=== PATIENT | female | born 1955 | race Caucasian/White ===

== ENCOUNTER → 2023-08-28 07:48 | Outpatient (REF) | payer OTHER, SELFPAY ==
[2023-08-28 09:37] LABS: % Eosinophils 4.5 % (0-6); % Immature Granulocytes 0.1 % (0-0.5); % Lymphocytes 34.5 % (20.5-51.1); % Monocytes 7.9 % (1.7-9.3); Absolute Basophils 0.1 10^3/uL (0-0.2); Absolute Eosinophils 0.3 10^3/uL (0-0.7); Absolute Lymphocytes 2.4 10^3/uL (1.2-3.4); Absolute Monocytes 0.5 10^3/uL (0.1-0.6); Absolute Neutrophils 3.6 10^3/uL (1.4-6.5); Hematocrit 38.1 % (37.0-47.0); Hemoglobin 12.2 g/dL (12.0-16.0); Mean Corpuscular Hgb 30.6 pg (27.0-31.0); Mean Corpuscular Volume 95.5 fL (81.0-99.0); Mean Platelet Volume 12.6 fL (7.4-10.4); Nucleated Red Blood Cells % 0 %; Platelet Count 146 10^3/uL (130-400); Red Blood Cell Count 3.99 10^6/uL (4.20-5.40); Red Cell Dist. Width 13.8 % (11.5-14.5); White Blood Cell Count 6.9 10^3/uL (4.8-10.8)
[2023-08-28 10:12] LABS: ALT (SGPT) 19 U/L (0-35); AST (SGOT) 31 U/L (14-36); Albumin 4.5 g/dl (3.5-5.0); Alkaline Phosphatase 87 U/L (38-126); Blood Urea Nitrogen 50 mg/dl (7-17); Calcium 9.8 mg/dl (8.4-10.2); Carbon Dioxide 30 mmol/L (22-30); Chloride 102 mmol/L (98-107); Glucose 91 mg/dl (70-99); HDL Cholesterol 85 mg/dl; LDL Cholesterol, Calculated 114 mg/dl; Sodium 139 mmol/L (135-145); Total Bilirubin 0.7 mg/dl (0.2-1.3); Total Cholesterol 208 mg/dl (50-199); Total Protein 7.6 g/dl (6.3-8.2); Triglyceride 48 mg/dl (10-149); Very Low Density Lipoprotein 9 mg/dl (0-30); eGFR > 60.00
[2023-08-28 10:38] LABS: TSH Reflex To Free T4 1.53 uIU/ml (0.47-4.68)
== END ==
LOC: REG 07:48
PROVIDERS: ATTENDING PHYSICIAN Physician Assistant
DX: I10 Essential (primary) hypertension (principal); F32.9 Major depressive disorder, single episode, unspecified; E78.5 Hyperlipidemia, unspecified; K21.9 Gastro-esophageal reflux disease without esophagitis
CPT/HCPCS: 36415; 80053; 80061; 84443; 85025

== ENCOUNTER → 2023-09-09 12:33 | Outpatient (REF) | payer OTHER, SELFPAY | LOC: WDC 12:33 | PROVIDERS: ATTENDING PHYSICIAN Physician Assistant | DX: Z12.31 Encounter for screening mammogram for malignant neoplasm of breast (principal) | CPT/HCPCS: 77063; 77067 ==

== ENCOUNTER 2024-08-01 06:22 | Day surgery (SDC) | payer OTHER, SELFPAY | END 2024-08-01 12:28 | disposition home or self-care (01) | LOC: GI 06:22 | PROVIDERS: ATTENDING PHYSICIAN Internal Medicine Gastroenterology | DX: K59.00 Constipation, unspecified (principal); K57.30 Diverticulosis of large intestine without perforation or abscess without bleeding; K64.8 Other hemorrhoids; D12.0 Benign neoplasm of cecum; D12.8 Benign neoplasm of rectum; K63.5 Polyp of colon; K62.1 Rectal polyp | CPT/HCPCS: 45385; 45380; 88305 ==

== ENCOUNTER 2024-08-06 16:45 | Emergency (ER) | payer OTHER, SELFPAY ==
[2024-08-06 16:48] VITALS: BP 130/106
[2024-08-06] MEDS: DECADRON 10 MG PO (18:48)
--- NOTE | 2024-08-06 18:58 | ED.GENMED ---
History of Present Illness
General
Chief Complaint: Skin Problem
Source: patient and family (daughter at bedside)
Exam Limitations: none
Time Seen by Provider: 08/06/24 18:22
Nursing documentation reviewed up to this point in time: agreed with
History of Present Illness
History of Present Illness:
68-year-old female presents for generalized body rash that started this morning. She was started on bupropion HCl XL 150 mg daily about 10 days ago. No other known exposures. She denies shortness of breath or chest pain. She denies fever or
chills. Denies nausea or vomiting. Denies any sores in her mouth or vaginal area. She states she feels well and 'it does not bother me much.'
Past History
Past History
ED Past Medical History: HTN, Hypercholesterolemia and Other (Scoliosis. )
ED Past Surgical History: Gynecological (Hysterectomy)
Social History
Tobacco: Non-smoker
Alcohol: Occasional
Personal: Single
Living: with family
Employment: Employed
Review of Systems
Review of Systems
Allergies reviewed?: Yes
All Other Systems: ROS reviewed and negative except as documented in HPI and ROS
Constitutional: Denies fever or chills
EENT: Denies sore throat, mouth pain or mouth swelling
Respiratory: Denies trouble breathing
Cardiac: Denies chest pain
ABD/GI: Denies abdominal pain or nausea
: Reports no symptoms
Musculoskeletal: Reports no symptoms
Skin: Reports itching and rash
Neurological: Reports no symptoms
Phy Exam
Physical Exam
Physical Exam:
GENERAL: No acute distress. A&Ox3.
CONSTITUTIONAL: Afebrile.
EYES: clear, conjunctivae normal
ENMT: moist mucus membranes, Pharynx nl, no intraoral lesions
RESPIRATORY: Regular respirations, nonlabored, lungs clear.
CARDIOVASCULAR: Regular rate and rhythm, no murmurs, no rubs.
GI: Soft, nontender, normal BS
MUSCULOSKELETAL: Moves with ease. Well perfused.
SKIN: Warm, dry, generalized macular rash mainly concentrated on trunk, someone legs and arms, minimally on face pink
PSYCH: Normal mood and affect. Well kept, interactive and appropriate
NEUROLOGIC: Awake, alert and oriented. No focal neurological deficits
Course
Orders/Labs/Results
Orders:
Orders
08/06/24 18:38
Dexamethasone [Decadron] 10 mg PO NOW STA
Vital Signs
Initial and Last Documented VS:
Initial Vital Signs
Temp Pulse Resp BP Pulse Ox
99.1 F 106 16 130/106 96
08/06/24 16:48 08/06/24 16:48 08/06/24 16:48 08/06/24 16:48 08/06/24 16:48
Last Documented Vital Signs
Temp Pulse Resp BP Pulse Ox
99.1 F 106 16 130/106 96
08/06/24 16:48 08/06/24 16:48 08/06/24 16:48 08/06/24 16:48 08/06/24 16:48
MDM/Problems Addressed
Differential Diagnosis Includes:
Drug rash,, SJS, allergic reaction
MDM/Problems Addressed:
68-year-old female presents for generalized body rash that started this morning. She was started on bupropion HCl XL 150 mg daily about 10 days ago. No other known exposures. She denies shortness of breath or chest pain. She denies fever or
chills. Denies nausea or vomiting. Denies any sores in her mouth or vaginal area. She states she feels well and 'it does not bother me much.'
Afebrile, NAD
No infectious or systemic symptoms.
Most likely an adverse reaction to bupropion which was recently started
Plan: Stop the Bupropion, Benadryl as needed, Decadron given here, she will follow-up with her PCP in 2 days
She lives with her daughter who will care for her
*Critical Care Note
Total Time (30-74mins, 75-104mins- exclusive of procedures): Not Applicable
ED Attending Note
-
Portions of this chart may have been created with voice recognition software.� Occasional wrong word or��sound alike� substitutions may have occurred due to the inherent limitations of voice recognition software.
Discharge Plan
Departure
Patient Disposition: Home (Routine Discharge)
Date of Disposition: 08/06/24
Time of Disposition: 18:56
Patient with high blood pressure during this ER visit?: No
Condition: Good
Discharge Problem:
Generalized rash
Instructions: Adverse Drug Reactions, Adult ED
Prescriptions:
No Action
lisinopril-hydrochlorothiazide 1 EACH tablet
1 tab PO DAILY
escitalopram oxalate 10 MG tablet
10 mg PO DAILY
Referrals:
UNKNOWN,NO INTERVIEW [Family Provider] -
Activity Restrictions/Additional Instructions:
As we discussed, you may take Benadryl 50 mg every 6 hours as needed for rash, itching
You received a steroid Decadron here today, this is a long-acting steroid and will cover you for the next 3 days.
See your doctor Wednesday for reevaluation and inform her that you had to stop the bupropion
Interventions
Interventions:
*Risk Screen - Suicide Last Done: 08/06/24 17:20
*General Assessment Last Done: 08/06/24 17:20
*Neglect/Abuse Screening Last Done: 08/06/24 17:20
*ED COVID-19 Vaccine History Last Done: 08/06/24 17:20
*Nursing Disposition Last Done: 08/06/24 18:49
ED-Skin Assessment Last Done: 08/06/24 17:20
Discharge Date and Time
Discharge Date/Time: 08/06/24 19:07
Print Language: GUYANESE
== END 2024-08-06 19:07 | disposition home or self-care (01) ==
LOC: EMR 16:45
PROVIDERS: EMERGENCY PHYSICIAN Emergency Medicine
DX: R21 Rash and other nonspecific skin eruption (principal); E78.00 Pure hypercholesterolemia, unspecified; I10 Essential (primary) hypertension; Z90.710 Acquired absence of both cervix and uterus
CPT/HCPCS: 99283

== ENCOUNTER → 2024-08-08 14:21 | Outpatient (REF) | payer OTHER, SELFPAY ==
[2024-08-08 15:38] LABS: % Basophils 0.2 % (0-2); % Eosinophils 3.6 % (0-6); % Immature Granulocytes 0.6 % (0-0.5); % Lymphocytes 10.8 % (20.5-51.1); % Monocytes 4.3 % (1.7-9.3); % Neutrophils 80.5 % (42.2-75.2); Absolute Eosinophils 0.4 10^3/uL (0-0.7); Absolute Immature Granulocytes 0.1 10^3/uL (0-0.05); Absolute Lymphocytes 1.1 10^3/uL (1.2-3.4); Absolute Monocytes 0.4 10^3/uL (0.1-0.6); Absolute Neutrophils 8.3 10^3/uL (1.4-6.5); Hematocrit 37.5 % (37.0-47.0); Hemoglobin 12.4 g/dL (12.0-16.0); Mean Corp Hgb Conc. 33.1 g/dL (33.0-37.0); Mean Corpuscular Hgb 30.5 pg (27.0-31.0); Mean Corpuscular Volume 92.1 fL (81.0-99.0); Mean Platelet Volume 12.9 fL (7.4-10.4); Nucleated Red Blood Cells % 0 %; Platelet Count 148 10^3/uL (130-400); Red Blood Cell Count 4.07 10^6/uL (4.20-5.40); Red Cell Dist. Width 14.4 % (11.5-14.5); White Blood Cell Count 10.3 10^3/uL (4.8-10.8)
[2024-08-08 15:50] LABS: ALT (SGPT) 18 U/L (0-35); AST (SGOT) 28 U/L (14-36); Albumin 4.2 g/dl (3.5-5.0); Alkaline Phosphatase 54 U/L (38-126); Blood Urea Nitrogen 50 mg/dl (7-17); Carbon Dioxide 26 mmol/L (22-30); Chloride 101 mmol/L (98-107); Glucose 110 mg/dl (70-99); Potassium 4.1 mmol/L (3.5-5.1); Sodium 137 mmol/L (135-145); Total Bilirubin 0.6 mg/dl (0.2-1.3); Total Protein 7.4 g/dl (6.3-8.2); eGFR 26.54
== END ==
LOC: RAD 14:21
PROVIDERS: ATTENDING PHYSICIAN Physician Assistant
DX: I95.1 Orthostatic hypotension (principal); R21 Rash and other nonspecific skin eruption; R05.1 Acute cough; R11.0 Nausea; I10 Essential (primary) hypertension
CPT/HCPCS: 36415; 71046; 80053; 85025

== ENCOUNTER → 2024-08-11 06:32 | Outpatient (REF) | payer OTHER, SELFPAY ==
[2024-08-11 08:04] LABS: % Basophils 0.7 % (0-2); % Eosinophils 11.4 % (0-6); % Immature Granulocytes 0.5 % (0-0.5); % Monocytes 10.2 % (1.7-9.3); % Neutrophils 55.2 % (42.2-75.2); Absolute Eosinophils 0.7 10^3/uL (0-0.7); Absolute Lymphocytes 1.3 10^3/uL (1.2-3.4); Absolute Monocytes 0.6 10^3/uL (0.1-0.6); Absolute Neutrophils 3.1 10^3/uL (1.4-6.5); Hematocrit 34.7 % (37.0-47.0); Hemoglobin 11.5 g/dL (12.0-16.0); Mean Corp Hgb Conc. 33.1 g/dL (33.0-37.0); Mean Corpuscular Hgb 30.4 pg (27.0-31.0); Mean Corpuscular Volume 91.8 fL (81.0-99.0); Mean Platelet Volume 12.8 fL (7.4-10.4); Nucleated Red Blood Cells % 0 %; Platelet Count 182 10^3/uL (130-400); Red Blood Cell Count 3.78 10^6/uL (4.20-5.40); Red Cell Dist. Width 13.6 % (11.5-14.5); White Blood Cell Count 5.7 10^3/uL (4.8-10.8)
[2024-08-11 08:33] LABS: ALT (SGPT) 20 U/L (0-35); AST (SGOT) 25 U/L (14-36); Alkaline Phosphatase 68 U/L (38-126); Blood Urea Nitrogen 36 mg/dl (7-17); Calcium 8.9 mg/dl (8.4-10.2); Carbon Dioxide 29 mmol/L (22-30); Chloride 101 mmol/L (98-107); Glucose 98 mg/dl (70-99); Potassium 4.6 mmol/L (3.5-5.1); Sodium 136 mmol/L (135-145); Total Bilirubin 0.6 mg/dl (0.2-1.3)
[2024-08-11 08:39] LABS: INR 0.97; PT 13.2 Sec (11.4-14.6)
[2024-08-11 08:52] LABS: Erythrocyte Sed Rate 42 mm/hour (0-20)
[2024-08-11 08:57] LABS: Urine Albumin Negative (Neg - Trace); Urine Bilirubin Negative (Negative); Urine Character Clear (Clear); Urine Color Yellow; Urine Glucose Negative (Negative); Urine Ketone Negative (Negative); Urine Leukocyte 2+ (Negative); Urine Nitrite Negative (Negative); Urine Occult Blood 1+ (Negative); Urine Urobilinogen Negative (Neg - 1+)
[2024-08-11 11:01] LABS: Urine Urothelial Cell 0-2 /LPF (FEW)
[2024-08-11 11:02] LABS: Urine Red Blood Cell 0-2 /HPF (0-2); Urine White Cell 16-20 /HPF (0-5)
[2024-08-11 11:03] LABS: Urine Bacteria Few (Negative)
[2024-08-13 02:14] LABS: ANA, IgG Reflex to HEp-2 None Detected (None Detected); ds-DNA Ab, IgG Reflex To Titer 10 IU (0-24)
== END ==
LOC: REG 06:32
PROVIDERS: ATTENDING PHYSICIAN Physician Assistant
DX: N28.9 Disorder of kidney and ureter, unspecified (principal); R21 Rash and other nonspecific skin eruption; R79.89 Other specified abnormal findings of blood chemistry
CPT/HCPCS: 36415; 80053; 81003; 81015; 85025; 85610; 85652; 85730; 86038; 86140; 86225

== ENCOUNTER → 2024-08-16 11:25 | Outpatient (REF) | payer OTHER, SELFPAY ==
[2024-08-16 12:24] LABS: % Basophils 1.9 % (0-2); % Eosinophils 3.6 % (0-6); % Immature Granulocytes 3.9 % (0-0.5); % Lymphocytes 25.9 % (20.5-51.1); % Monocytes 7.7 % (1.7-9.3); Absolute Basophils 0.2 10^3/uL (0-0.2); Absolute Eosinophils 0.4 10^3/uL (0-0.7); Absolute Immature Granulocytes 0.4 10^3/uL (0-0.05); Absolute Lymphocytes 2.7 10^3/uL (1.2-3.4); Absolute Monocytes 0.8 10^3/uL (0.1-0.6); Hematocrit 34.5 % (37.0-47.0); Hemoglobin 11.3 g/dL (12.0-16.0); Mean Corp Hgb Conc. 32.8 g/dL (33.0-37.0); Mean Corpuscular Hgb 30.5 pg (27.0-31.0); Mean Platelet Volume 11.8 fL (7.4-10.4); Nucleated Red Blood Cells % 0 %; Platelet Count 279 10^3/uL (130-400); Red Blood Cell Count 3.71 10^6/uL (4.20-5.40); Red Cell Dist. Width 13.7 % (11.5-14.5); Reticulocyte Count 1.8 % (0.4-2.8); White Blood Cell Count 10.4 10^3/uL (4.8-10.8)
[2024-08-16 13:55] LABS: ALT (SGPT) 28 U/L (0-35); AST (SGOT) 31 U/L (14-36); Albumin 4.2 g/dl (3.5-5.0); Alkaline Phosphatase 67 U/L (38-126); Blood Urea Nitrogen 33 mg/dl (7-17); Calcium 9.3 mg/dl (8.4-10.2); Carbon Dioxide 27 mmol/L (22-30); Chloride 103 mmol/L (98-107); Glucose 92 mg/dl (70-99); Iron 65 ug/dl (37-170); Sodium 138 mmol/L (135-145); Total Bilirubin 0.5 mg/dl (0.2-1.3); Total Protein 7.2 g/dl (6.3-8.2); eGFR > 60.00
[2024-08-16 14:04] LABS: Percent Saturation 22 % (20-50); Total Iron Binding Capacity 283 ug/dl (265-497)
== END ==
LOC: REG 11:25
PROVIDERS: ATTENDING PHYSICIAN Physician Assistant
DX: D64.9 Anemia, unspecified (principal); N28.9 Disorder of kidney and ureter, unspecified
CPT/HCPCS: 36415; 80053; 82728; 83540; 83550; 85025; 85045

== ENCOUNTER → 2024-08-26 11:14 | Outpatient (REF) | payer OTHER, SELFPAY ==
[2024-08-26 11:48] LABS: % Basophils 1.8 % (0-2); % Eosinophils 4.7 % (0-6); % Immature Granulocytes 0.6 % (0-0.5); % Lymphocytes 28.3 % (20.5-51.1); % Neutrophils 55.6 % (42.2-75.2); Absolute Basophils 0.2 10^3/uL (0-0.2); Absolute Eosinophils 0.4 10^3/uL (0-0.7); Absolute Immature Granulocytes 0.1 10^3/uL (0-0.05); Absolute Lymphocytes 2.5 10^3/uL (1.2-3.4); Absolute Monocytes 0.8 10^3/uL (0.1-0.6); Hematocrit 36.6 % (37.0-47.0); Hemoglobin 12.1 g/dL (12.0-16.0); Mean Corp Hgb Conc. 33.1 g/dL (33.0-37.0); Mean Corpuscular Hgb 30.9 pg (27.0-31.0); Mean Corpuscular Volume 93.4 fL (81.0-99.0); Mean Platelet Volume 12.1 fL (7.4-10.4); Nucleated Red Blood Cells % 0 %; Platelet Count 209 10^3/uL (130-400); Red Blood Cell Count 3.92 10^6/uL (4.20-5.40); Red Cell Dist. Width 14.3 % (11.5-14.5); Reticulocyte Count 1.6 % (0.4-2.8); White Blood Cell Count 8.9 10^3/uL (4.8-10.8)
[2024-08-26 12:10] LABS: ALT (SGPT) 29 U/L (0-35); AST (SGOT) 28 U/L (14-36); Albumin 4.5 g/dl (3.5-5.0); Alkaline Phosphatase 60 U/L (38-126); Blood Urea Nitrogen 57 mg/dl (7-17); Calcium 9.5 mg/dl (8.4-10.2); Carbon Dioxide 26 mmol/L (22-30); Chloride 104 mmol/L (98-107); Glucose 79 mg/dl (70-99); Potassium 4.7 mmol/L (3.5-5.1); Sodium 138 mmol/L (135-145); Total Bilirubin 0.8 mg/dl (0.2-1.3); Total Protein 7.6 g/dl (6.3-8.2); eGFR 40.73
[2024-08-26 12:13] LABS: C-Reactive Protein < 5.00 mg/L (0.0-10.00)
[2024-08-26 12:45] LABS: Erythrocyte Sed Rate 19 mm/hour (0-20)
== END ==
LOC: REG 11:14
PROVIDERS: ATTENDING PHYSICIAN Physician Assistant
DX: R79.82 Elevated C-reactive protein (CRP) (principal); R79.89 Other specified abnormal findings of blood chemistry; Z87.448 Personal history of other diseases of urinary system
CPT/HCPCS: 36415; 80053; 85025; 85045; 85652; 86140

== ENCOUNTER → 2024-09-27 11:58 | Outpatient (REF) | payer OTHER, SELFPAY ==
[2024-09-27 12:42] LABS: Hematocrit 36.6 % (37.0-47.0); Hemoglobin 11.6 g/dL (12.0-16.0); Mean Corp Hgb Conc. 31.7 g/dL (33.0-37.0); Mean Corpuscular Volume 95.1 fL (81.0-99.0); Nucleated Red Blood Cells % 0 %; Platelet Count 181 10^3/uL (130-400); Red Cell Dist. Width 13.8 % (11.5-14.5)
[2024-09-27 12:43] LABS: Urine Character Clear (Clear)
[2024-09-27 13:11] LABS: Urine Red Blood Cell None Seen /HPF (0-2); Urine White Cell 0-2 /HPF (0-5)
[2024-09-27 13:16] LABS: Body Fluid for Eosinophils No Eosinophils seen
[2024-09-27 13:17] LABS: ALT (SGPT) 17 U/L (0-35); AST (SGOT) 24 U/L (14-36); Albumin 4.6 g/dl (3.5-5.0); Alkaline Phosphatase 77 U/L (38-126); Blood Urea Nitrogen 43 mg/dl (7-17); Calcium 9.5 mg/dl (8.4-10.2); Carbon Dioxide 25 mmol/L (22-30); Chloride 103 mmol/L (98-107); Glucose 92 mg/dl (70-99); Potassium 4.8 mmol/L (3.5-5.1); Sodium 137 mmol/L (135-145); Total Protein 7.7 g/dl (6.3-8.2); eGFR 54.39
== END ==
LOC: REG 11:58
PROVIDERS: ATTENDING PHYSICIAN Physician Assistant
DX: N28.9 Disorder of kidney and ureter, unspecified (principal); R79.82 Elevated C-reactive protein (CRP); R70.0 Elevated erythrocyte sedimentation rate
CPT/HCPCS: 36415; 80053; 81003; 81015; 81099; 85025; 85652

== ENCOUNTER → 2024-10-23 14:06 | Outpatient (REF) | payer OTHER, SELFPAY ==
[2024-10-23 15:56] LABS: Blood Urea Nitrogen 44 mg/dl (7-17); Calcium 9.1 mg/dl (8.4-10.2); Carbon Dioxide 27 mmol/L (22-30); Chloride 99 mmol/L (98-107); Glucose 92 mg/dl (70-99); Potassium 4.8 mmol/L (3.5-5.1); Sodium 132 mmol/L (135-145); eGFR 49.00
[2024-10-23 16:57] LABS: ASO Quantitative 200 IU/ml (<200)
[2024-10-26 01:57] LABS: Serine Protease-3, IgG 1 AU/mL (0-19)
== END ==
LOC: RAD 14:06
PROVIDERS: ATTENDING PHYSICIAN Specialist; FAMILY PHYSICIAN Physician Assistant
DX: N17.9 Acute kidney failure, unspecified (principal)
CPT/HCPCS: 36415; 76770; 80048; 82570; 83516; 84155; 84156; 84165; 86060; 86063; 86160